=== PATIENT | male | born 1980 | race American Indian/Alaskan Native ===

== ENCOUNTER 2021-10-17 08:49 | Day surgery (SDC) | payer BC ==
[2021-10-17] MEDS ORDERED: LACTATED RINGERS 1,000 ML ONE ×2 (09:21→13:41)
[2021-10-17] MEDS ORDERED: HYDROmorphone 0.5 MG/0.5 ML INJ IV PRN ×2 (09:48)
[2021-10-17] MEDS ORDERED: MAGNESIUM OXIDE 400 MG TAB PO ONE (09:48)
[2021-10-17] MEDS ORDERED: ONDANSETRON 4 MG/2 ML INJ IV PRN (09:48)
[2021-10-17] MEDS ORDERED: ACETAMINOPHEN 500 MG TAB PO ONE (09:48)
--- NOTE | 2021-10-17 09:49 | Anesthesia Consultation ---
Anesthesia Consult and Med Hx Date of service: 10/17/21 - Airway Anesthetic Teeth Evaluation: Chipped ROM Head & Neck: Adequate Mental/Hyoid Distance: Adequate Mallampati Class: Class II Intubation Access Assessment: Good - Pre-Operative Health Status ASA Pre-Surgery Classification: ASA2 Proposed Anesthetic Plan: General - Pulmonary Hx Smoking: No Hx Asthma: Yes ( CHILD ONLY) Hx Sleep Apnea: No (PETER PRE SCREEN HIGH RISK) - Cardiovascular System Hx Hypertension: No - Central Nervous System Hx Psychiatric Problems: No - Gastrointestinal Hx Gastroesophageal Reflux Disease: No - Hematic Hx Anemia: No Hx Sickle Cell Disease: No - Other Systems Hx Cancer: No Hx Obesity: Yes
--- NOTE | 2021-10-17 09:49 | Anesthesia Day of Surgery ---
Anesthesia Day of Surgery - Day of Surgery Patient Examined: Yes Patient H&P Reviewed: Yes Patient is NPO: Yes
[2021-10-17] MEDS ORDERED: CELECOXIB 200 MG CAP PO NR (10:00)
[2021-10-17] MEDS ORDERED: LACTATED RINGERS 1,000 ML IV SCH (10:00)
[2021-10-17] MEDS ORDERED: MIDAZOLAM 2 MG/2 ML INJ IV NR (10:00)
[2021-10-17] MEDS ORDERED: propofoL 200 MG/20 ML VIAL IV ONE (12:20)
[2021-10-17] MEDS ORDERED: MIDAZOLAM 2 MG/2 ML INJ ONE (12:20)
[2021-10-17] MEDS ORDERED: fentaNYL 100 MCG/2 ML INJ ONE ×2 (12:20→12:47)
[2021-10-17] MEDS ORDERED: HYDROmorphone 0.5 MG/0.5 ML INJ ONE (12:51)
[2021-10-17] MEDS ORDERED: BUPIVACAINE/PF (0.25%) 2.5 MG/ML 10 ML VIAL INFILTRATI ONE ×2 (13:00→13:07)
[2021-10-17] MEDS ORDERED: SODIUM CHLORIDE 0.9% IRR 1,000 ML BOTTLE IR ONE (13:07)
--- NOTE | 2021-10-17 13:21 | Short Stay Summary ---
Short Stay Documentation Date of service: 10/17/21 - History H&P: obtained from office - Allergies and Medications Current Medications: Allergies No Known Allergies Allergy (Verified 10/17/21 09:22) Home Medications Medication Instructions Recorded Confirmed Last Taken Type No Known Home Medications [No 10/12/21 10/12/21 Unknown History Reported Home Medications] Active Medications Celecoxib (Celecoxib 200 Mg Cap) 400 mg PO PREOP NR Stop: 10/17/21 23:59 Last Admin: 10/17/21 10:20 Dose: 400 mg Hydromorphone HCl (Hydromorphone 0.5 Mg/0.5 Ml Inj) 0.25 mg IV Q10MIN PRN PRN Reason: Pain, Moderate (4-6) Hydromorphone HCl (Hydromorphone 0.5 Mg/0.5 Ml Inj) 0.5 mg IV Q10MIN PRN PRN Reason: Pain , Severe (7-10) Cefazolin Sodium 3 gm/ Sodium (Chloride) 100 mls @ 100 mls/30 min IV PREOP NR; Protocol Stop: 10/17/21 23:59 Lactated Ringer's (Lactated Ringers) 1,000 mls @ 125 mls/hr IV DIRECT JOAN Last Admin: 10/17/21 11:45 Dose: 125 mls/hr Midazolam HCl (Midazolam 2 Mg/2 Ml Inj) 2 mg IV PREOP NR Stop: 10/17/21 23:59 Ondansetron HCl (Ondansetron 4 Mg/2 Ml Inj) 4 mg IV ONCE PRN PRN Reason: Nausea And Vomiting - Brief post op/procedure progress note Date of procedure: 10/17/21 Pre-op diagnosis: left testes mass Post-op diagnosis: same Procedure: left radical orchiectomy Anesthesia: GETA Surgeon: PRUDENCE GIRARD Estimated blood loss: minimal Pathology: list (testes---left) Specimen disposition: to lab Condition: stable - Hospital course Hospital course: percocet on chart - Disposition Condition at discharge: Stable Disposition: 01 HOME / SELF CARE / HOMELESS Short Stay Discharge Plan Follow up with: PRIMARY CARE, [Primary Care Provider] - 7 Days
[2021-10-17] MEDS ORDERED: ONDANSETRON 4 MG/2 ML INJ ONE (13:40)
[2021-10-17] MEDS ORDERED: dexAMETHasone 20 MG/5 ML VIAL ONE (13:40)
[2021-10-17] MEDS ORDERED: KETOROLAC 30 MG/1 ML INJ ONE (13:40)
--- NOTE | 2021-10-17 14:27 | Operative Report ---
DATE OF SURGERY: 10/17/2021 PREOPERATIVE DIAGNOSIS: Left testicular mass. POSTOPERATIVE DIAGNOSIS: Left testicular mass. PROCEDURE: Left radical inguinal orchiectomy. SURGEON: Tima Mcnamara M.D. ANESTHESIA: General. ESTIMATED BLOOD LOSS: Minimal. FLUIDS: Crystalloid. COMPLICATIONS: No complications. INDICATIONS: This 41-year-old gentleman initially seen in our [place] office by Dr. Lenny Menard, was found to have a left testicular mass on ultrasound. Due to insurance reasons, he was referred for further management. Exam was consistent with a testicular mass. Risks, benefits, complications were explained. The patient agreed to proceed with surgical intervention. He has a normal contralateral testis. Sperm banking was discussed preop. DESCRIPTION OF PROCEDURE: The patient was taken to the operative suite, placed in a supine position. After adequate general anesthesia, he was prepped and draped in a sterile fashion. Left inguinal incision was made with a Bovie. Sharp dissection was taken down to the external oblique fascia, which was opened. Cord structures could be appreciated. Testis was pulled up into the wound without difficulty. Did not violate the tunica vaginalis; however, obvious firm mass diffusely could be appreciated. A Ewing drain was used to secure the cord at the internal ring. At the internal ring, the cord was controlled with hemostats. It was transected and tied with 0 silk suture ligature x 2. No bleeding could be appreciated. Copious irrigation was performed. Specimen was sent to pathology. External oblique fascia was then closed with 2-0 Vicryl in a running fashion. Subcutaneous tissue was closed with 2-0 Vicryl in a running fashion. Skin was closed with herberth. Dressing was placed. The patient was extubated and taken to recovery room. He will go home on Percocet and followup in the office. TID: [id number] RECEIPT: [id number] [facility]/RIS
[2021-10-17] MEDS ORDERED: oxyCODONE /ACETAMINOPHEN 5-325MG TAB PO PRN (15:24)
--- NOTE | 2021-10-17 17:13 | Post Anesthesia Evaluation ---
- Post Anesthesia Evaluation Patient Participated: Yes Airway Patent: Yes Stable Respiratory Function: Yes Nausea/Vomiting: No Temp > 96.8F: Yes Pain Manageable: Yes Adequeate Hydration: Yes Anesthesia Complications: No Block Receding Appropriately: Not Applicable Patient on Ventilator: No
[2021-10-17 19:57] VITALS: BP 135/86
== END 2021-10-17 15:30 | disposition home or self-care (01) ==
LOC: OR 08:49
PROVIDERS: ATTEND Urology
DX: N50.89 Other specified disorders of the male genital organs (principal); D40.12 Neoplasm of uncertain behavior of left testis; E78.00 Pure hypercholesterolemia, unspecified; J45.909 Unspecified asthma, uncomplicated; E66.9 Obesity, unspecified; Z68.37 Body mass index [BMI] 37.0-37.9, adult; Z98.890 Other specified postprocedural states
CPT/HCPCS: 54530; 88309; J0690; J1100; J1170; J1885; J2250; J2405; J2704; J3010; J3490; J7120